=== PATIENT | male | born 1960 | race Caucasian/White ===

== ENCOUNTER 2024-11-10 09:15 | Outpatient (RCR) | payer BC, SELFPAY | END 2025-01-11 12:10 | disposition home or self-care (01) | PROVIDERS: PCP Family Medicine; Visit Provider Orthopaedic Surgery Sports Medicine | DX: M17.12 Unilateral primary osteoarthritis, left knee (principal); Z51.89 Encounter for other specified aftercare | CPT/HCPCS: 97110; 97161 ==

== ENCOUNTER 2025-09-17 08:56 | Outpatient (CLI) | payer MEDICARE, SELFPAY ==
--- NOTE | 2025-09-17 10:02 | P.ANES_ITS ---
Anesthesia Charges Start Date/Time Anesthesia Start Date: 09/17/25 Anesthesia Start Time: 09:26 Stop Date/Time Anesthesia Stop Date: 09/17/25 Anesthesia Stop Time: 09:58 Coding CPT Codes CPT Codes: ANES LWR INTST NDSC NOS - [id number] ([id number]) P3 - PATIENT W/SEVERE SYS DISEASE, QK - DRYING ROOM ATTENDANT 2-4 CNCRNT ANES PROC, QX - SALES CONSULTANT SVC W/ MD MED DIRECTION
--- NOTE | 2025-09-17 10:02 | W.ANESCHARGE ---
Anesthesia Charges Start Date/Time Anesthesia Start Date: 09/17/25 Anesthesia Start Time: 09:26 Stop Date/Time Anesthesia Stop Date: 09/17/25 Anesthesia Stop Time: 09:58 Coding CPT Codes CPT Codes: ANES LWR INTST NDSC NOS - [id number] ([id number]) P3 - PATIENT W/SEVERE SYS DISEASE, QK - HEDGE FUND MANAGER 2-4 CNCRNT ANES PROC, QX - GATE GUARD SVC W/ MD MED DIRECTION
--- NOTE | 2025-09-17 13:52 | P.ANES_ITS ---
Anesthesia Charges Start Date/Time Anesthesia Start Date: 09/17/25 Anesthesia Start Time: 09:26 Stop Date/Time Anesthesia Stop Date: 09/17/25 Anesthesia Stop Time: 09:58 Coding CPT Codes CPT Codes: ANES LWR INTST NDSC NOS - [id number] ([id number]) QK - DISABILITY AIDE 2-4 CNCRNT ANES PROC, QX - PLANNING SPECIALIST SVC W/ MED DIRECTION, P3 - PATIENT W/SEVERE SYS DISEASE
--- NOTE | 2025-09-17 13:52 | W.ANESCHARGE ---
Anesthesia Charges Start Date/Time Anesthesia Start Date: 09/17/25 Anesthesia Start Time: 09:26 Stop Date/Time Anesthesia Stop Date: 09/17/25 Anesthesia Stop Time: 09:58 Coding CPT Codes CPT Codes: ANES LWR INTST NDSC NOS - [id number] ([id number]) QK - CLARITY SPECIALISTS 2-4 CNCRNT ANES PROC, QX - MANAGER ACTUARIAL SVC W/ MED DIRECTION, P3 - PATIENT W/SEVERE SYS DISEASE
== END 2025-09-17 08:57 | disposition home or self-care (01) ==
PROVIDERS: PCP Family Medicine; Visit Provider Surgery
DX: Z12.11 Encounter for screening for malignant neoplasm of colon (principal); Z86.0100 Personal history of colon polyps, unspecified; D12.2 Benign neoplasm of ascending colon; D12.3 Benign neoplasm of transverse colon
CPT/HCPCS: 00811; 45385; 88305; J2704